=== PATIENT | female | born 1950 | race Caucasian/White ===

== ENCOUNTER 2018-02-09 10:00 | Outpatient (CLI) | payer MEDICARE, BC ==
--- NOTE | 2018-02-09 13:07 | MRI ---
MRI OF RIGHT KNEE PERFORMED WITHOUT CONTRAST ENHANCEMENT: HISTORY: Posterior right knee pain. FINDINGS: The anterior cruciate ligament shows prominent mucoid degeneration, particularly the proximal portion . Posterior cruciate ligament is intact. The lateral meniscus shows some increased intrameniscal signal change within the junction of the post erior horn and body of the meniscus and a small peripheral nondisplaced undersurface flap-type tear w hich involves the peripheral red zone region. The medial meniscus shows a radial tear of the posterior horn which is near the meniscal root. There is meniscal protrusion related to loss of hoop strength approximately 3 mm and medial compartment jacklyn int space narrowing. There is also internal mucoid degeneration of the posterior horn and body regio n of the meniscus. The medial as well as lateral collateral ligaments are intact. Patellar articular cartilage shows marked articular cartilage loss of the medial facet. The mediolat eral patellar retinaculum and quadriceps and patellar tendons appear unremarkable. IMPRESSION: 1. Small undersurface tear of the junction of the posterior horn and body of the lateral meniscus. This is an undersurface tear involving the red zone region and is a small focal tear. 2. Radial tear of the posterior horn of the medial meniscus with associated meniscal protrusion and joint space narrowing. There is also evidence of articular cartilage loss of the medial compartment. 3. 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 POS: [facility]
== END 2018-02-09 10:01 | disposition home or self-care (01) ==
LOC: SCSMRI 10:00
PROVIDERS: ATTEND Family Medicine
DX: M25.561 Pain in right knee (principal); M25.361 Other instability, right knee